=== PATIENT | female | born 1960 | race Caucasian/White ===

== ENCOUNTER 2017-12-10 23:45 | Inpatient (IN) ==
--- NOTE | 2017-12-11 00:13 | ED ---
HPI General Chief complaint: Altered Mental Status Stated complaint: Weakness Time Seen by Provider: 12/10/17 23:54 Source: patient and family Mode of arrival: ambulatory Limitations: no limitations (However patient was very anxious upon arrival) History of Present Illness HPI narrative: Per daughter the patient developed left-sided visual deficits along with right-sided upper extremity weakness and facial droop right-sided. All developed approximately 30 minutes prior to arrival. Daughter made the patient stop driving pullover and they switched. The daughter then drove her to [facility] [place] Upon arrival the patient no longer had a facial droop, no longer had any weakness to her extremities, no longer had slurred speech, and only appear to have the visual deficit to her left eye only, best described as decreased peripheral vision to her left eye only Onset (ago): minute(s) (30 minutes prior to arrival) Location: head (See HPI) Radiation: non-radiation Severity: moderate Severity scale (1-10): 4 Quality: other (Severity and severity scale are not 2 pain they are to the severity of the deficit at the time) Pain Consistency: other (No pain) Relieving factors: none Exacerbating factors: none Treatments prior to arrival: none Related Data Home Medications Medication Instructions Recorded Confirmed hydrochlorothiazide 12.5 mg PO DAILY 12/11/17 12/11/17 insulin aspart U-100 [Novolog 1 sliding scale dose SUB-Q UD 12/11/17 12/11/17 U-100 Insulin aspart] insulin glargine [Lantus U-100 10 unit SUB-Q DAILY 12/11/17 12/11/17 Insulin] lisinopril 40 mg PO DAILY 12/11/17 12/11/17 pregabalin [Lyrica] 200 mg PO TID 12/11/17 12/11/17 zolpidem [Ambien] 12/11/17 Allergies Allergy/AdvReac Type Severity Reaction Status Date / Time Sulfa (Sulfonamide Allergy Rash Verified 12/10/17 23:50 Antibiotics) Review of Systems ROS: all other systems reviewed are negative PMFSH History History Provided By: Patient Medical History Medical History Depression (Acute) Diabetes mellitus (Acute) H/O: hysterectomy (Acute) History of CVA (cerebrovascular accident) (Acute) Hyperlipidemia (Acute) Hypertension (Acute) Hypothyroidism (Acute) Neuropathy (Acute) Restless leg syndrome (Acute) Surgical History Surgical History H/O knee surgery (Acute) H/O shoulder surgery (Acute) History of cholecystectomy (Acute) Hx of breast reduction, elective (Acute) Family History Family History Other Coronary artery disease Diabetes mellitus Social History Social History Second Hand Smoke Exposure: No Smoking Status: Former smoker How Often Do You Have a Drink Containing Alcohol: Never Recent Travel in [facility] within the Last 8 Weeks: No Recent Out of Country Travel within the Last 8 Weeks: No Exam Narrative Exam Narrative: GENERAL: Well-nourished, well-developed patient in no apparent distress. SKIN: Warm and dry. HEAD: Atraumatic. Normocephalic. EYES: Pupils equal and round. No scleral icterus. No injection or drainage. ENT: No nasal bleeding or discharge. Mucous membranes pink and moist. NECK: Trachea midline. No JVD. CARDIOVASCULAR: Regular rate and rhythm. no rubs or gallops RESPIRATORY: No accessory muscle use. Clear to auscultation. Breath sounds equal bilaterally. GASTROINTESTINAL: Abdomen soft, non-tender, nondistended. No rebound or guarding MUSCULOSKELETAL: Extremities without clubbing, cyanosis, or edema. No obvious deformities. NEUROLOGICAL: Awake and alert. No obvious cranial nerve deficits. Motor grossly within normal limits. Five out of 5 muscle strength in the arms and legs. Normal speech....only remaining deficit is left lateral quadrant visual deficit to left eye only (no actual conjugate quadrantonopsia) PSYCHIATRIC: Appropriate mood and affect; insight and judgment normal. Course Initial Documented Vital Signs Temperature 97.6 F 12/10/17 23:47 Pulse Rate 96 H 12/10/17 23:47 Respiratory Rate 23 12/10/17 23:47 Blood Pressure 158/77 H 12/10/17 23:47 Pulse Oximetry 99 12/10/17 23:47 Last Documented Vital Signs Temperature 97.6 F 12/10/17 23:47 Pulse Rate 67 12/11/17 07:07 Respiratory Rate 16 12/11/17 07:07 Blood Pressure 143/68 H 12/11/17 07:07 Pulse Oximetry 98 12/11/17 07:07 Critical Care Time Critical Care Time: Yes Total Critical Care Time: 30 Attestation: Critical care Aggregate critical care time was 30 minutes. Time to perform other separately billable procedures was not included in the critical care time. My time did not include minutes spent treating any other patients simultaneously or on activities that did not directly contribute to the patient's treatment. The services I provided to this patient were to treat and/or prevent clinically significant deterioration that could result in: [Due to presentation of visual deficits weakness and droop this is suggestive of stroke syndrome, however within 30 minutes of arrival patient's symptoms improved dramatically] I provided critical care services requiring my management, as noted below: Chart data review, documentation time, medication orders and management, vital sign assessments/reviewing monitor data, ordering and reviewing lab tests, ordering and interpreting/reviewing x-rays and diagnostic studies, care of the patient and discussion of the patient with the admitting physicians. NIH Stroke Scale NIH Stroke Scale Level of Consciousness: 0-Alert Orientation Questions: 0-Answers both correct Responds to Commands: 0-Both tasks correct Gaze Eye Movement: 0-Horizontal movement WNL Visual Ambriz: 1-Partial hemianopia Facial Movement: 0-Normal Motor Functions Arm LEFT: 0-No drift Motor Functions Arm RIGHT: 0-No drift Motor Functions Leg LEFT: 0-No drift Motor Functions Leg RIGHT: 0-No drift Limb Ataxia: 0-No ataxia Sensory Loss: 0-No sensory loss Best Language: 0-Normal Articulation: 0-Normal Extinction or Inattention Sensory: 0-Absent Total: 1 Medical Decision Making MDM Narrative Medical decision making narrative: CBC shows no leukocytosis, no anemia, no left shift and normal platelet count Coagulation profile is within normal limits First set of cardiac enzymes are negative Electrolytes show the following abnormalities slightly low potassium of 3.3, GFR 51, creatinine 1.1, random glucose of 138. Otherwise normal electrolytes, normal liver functions chest xray is read by radiologist as negative examination CT head read by radiologist at 1 AM as a remote remote infarct of the right occipital lobe as well as more subtle hypodensity in the paramedian right occipital region concerning for an area of subacute infarct. Discussed in detail with the neurologist Dr. Huffman, recommended CT with contrast , admission, started on Plavix, due to the lack of major deficits the risk of TPA use outweighs the benefit, therefore the patient is not a TPA candidate. Lab Data Lab results reviewed: Yes I reviewed the patient's lab results. Result diagrams: 12/11/17 00:10 12/11/17 00:10 Lab Results 12/11/17 12/11/1712/11/18 Range/Units 00:01 00:10 00:10 WBC 9.3 (4.0-11.0) th/mm3 RBC 4.68 (4.00-5.30) mil/mm3 Hgb 12.2 (11.6-15.3) gm/dL Hct 38.0 (35.0-46.0) % MCV 81.2 (80.0-100.0) fL MCH 26.1 L (27.0-34.0) pg MCHC 32.2 (32.0-36.0) % RDW 18.7 H (11.6-17.2) % Plt Count 277 (150-450) th/mm3 MPV 8.2 (7.0-11.0) fL Neut % (Auto) 70.4 H (16.0-70.0) % Lymph % (Auto) 20.8 (9.0-44.0) % Weston % (Auto) 6.7 (0.0-8.0) % Eos % (Auto) 1.3 (0.0-4.0) % Baso % (Auto) 0.8 (0.0-2.0) % Neut # (Auto) 6.6 (1.8-7.7) th/mm3 Lymph # (Auto) 1.9 (1.0-4.8) th/mm3 Weston # (Auto) 0.6 (0.0-0.9) th/mm3 Eos # (Auto) 0.1 (0.0-0.4) th/mm3 Baso # (Auto) 0.1 (0.0-0.2) th/mm3 WBC Differential . Differential Comment Auto diff final PT 10.0 (9.8-11.6) sec INR 1.0 Ratio APTT 27.0 (24.3-30.1) sec Sodium (136-145) meq/L Potassium (3.5-5.1) meq/L Chloride (98-107) meq/L Carbon Dioxide (21.0-32.0) meq/L Anion Gap (5-15) meq/L BUN (7-18) mg/dL Creatinine (0.50-1.00) mg/dL Estimated GFR (>89) mL/min POC Glucose 143 H (68-110) mg/dl Random Glucose (74-106) mg/dL Calcium (8.5-10.1) mg/dL Total Bilirubin (0.2-1.0) mg/dL AST (15-37) U/L ALT (10-53) U/L Alkaline Phosphatase (45-117) U/L Total Creatine Kinase (26-192) U/L Troponin I (0.02-0.05) ng/mL Total Protein (6.4-8.2) g/dL Albumin (3.4-5.0) g/dL Blood Type Blood Type Recheck Antibody Screen 12/11/17 12/11/17 Range/Units 00:10 00:10 WBC (4.0-11.0) th/mm3 RBC (4.00-5.30) mil/mm3 Hgb (11.6-15.3) gm/dL Hct (35.0-46.0) % MCV (80.0-100.0) fL MCH (27.0-34.0) pg MCHC (32.0-36.0) % RDW (11.6-17.2) % Plt Count (150-450) th/mm3 MPV (7.0-11.0) fL Neut % (Auto) (16.0-70.0) % Lymph % (Auto) (9.0-44.0) % Weston % (Auto) (0.0-8.0) % Eos % (Auto) (0.0-4.0) % Baso % (Auto) (0.0-2.0) % Neut # (Auto) (1.8-7.7) th/mm3 Lymph # (Auto) (1.0-4.8) th/mm3 Weston # (Auto) (0.0-0.9) th/mm3 Eos # (Auto) (0.0-0.4) th/mm3 Baso # (Auto) (0.0-0.2) th/mm3 WBC Differential Differential Comment PT (9.8-11.6) sec INR Ratio APTT (24.3-30.1) sec Sodium 139 (136-145) meq/L Potassium 3.3 L (3.5-5.1) meq/L Chloride 105 (98-107) meq/L Carbon Dioxide 25.4 (21.0-32.0) meq/L Anion Gap 9 (5-15) meq/L BUN 8 (7-18) mg/dL Creatinine 1.10 H (0.50-1.00) mg/dL Estimated GFR 51 L (>89) mL/min POC Glucose (68-110) mg/dl Random Glucose 138 H (74-106) mg/dL Calcium 8.8 (8.5-10.1) mg/dL Total Bilirubin 0.4 (0.2-1.0) mg/dL AST 11 L (15-37) U/L ALT 19 (10-53) U/L Alkaline Phosphatase 126 H (45-117) U/L Total Creatine Kinase 44 (26-192) U/L Troponin I Less than 0.02 L (0.02-0.05) ng/mL Total Protein 7.4 (6.4-8.2) g/dL Albumin 3.8 (3.4-5.0) g/dL Blood Type O Positive Blood Type Recheck Required Antibody Screen Negative Imaging Data Radiologist's impression: Chest X-Ray 12/11/17 00:01 CONCLUSION: Negative examination. Head CT 12/11/17 00:01 CONCLUSION: 1. There is a remote infarct of the right occipital lobe, as well as more subtle hypodensity in the paramedian right occipital region concerning for an area of subacute infarct. MRI can be performed for further evaluation if felt clinically warranted . Head CTA 12/11/17 01:34 CONCLUSION: 1. Negative CTA Head. Neck CTA 12/11/17 01:34 CONCLUSION: 1. Atherosclerosis is seen however there is no evidence for hemodynamically significant stenosis. ECG Data EKG Prior to Arrival: No Attestation: I personally reviewed and interpreted this ECG as follows: Prior ECG tracings: not available for review Interpretation: EKG shows normal sinus rhythm, 79 bpm, normal intervals, no ST elevation CT pattern noted Discharge Plan Discharge Disposition Patient Disposition: 30 Still Patient Discharge Condition Condition: Stable Discharge Details Diagnosis: Occipital cerebral infarction Physicians Team ED Provider: Khurram Thomas Primary Care Provider: Primary Care Jeri,Kristyn Attending Provider: Jaya Handy Other Providers: Guillermo Springer ED Status: Admitted Patient
[2017-12-11] MEDS ORDERED: Sod Chloride 0.9% Inj 1,000 ML IV.CONT SCH (00:15)
[2017-12-11 00:26] LABS: Baso # (Auto) 0.1 th/mm3 (0.0-0.2); Baso % (Auto) 0.8 % (0.0-2.0); Eos # (Auto) 0.1 th/mm3 (0.0-0.4); Eos % (Auto) 1.3 % (0.0-4.0); Hemoglobin 12.2 gm/dL (11.6-15.3); Lymph # (Auto) 1.9 th/mm3 (1.0-4.8); Lymph % (Auto) 20.8 % (9.0-44.0); Mean Corpuscular HGB Conc 32.2 % (32.0-36.0); Mean Corpuscular Hemoglobin 26.1 pg (27.0-34.0); Mean Corpuscular Volume 81.2 fL (80.0-100.0); Mean Platelet Volume 8.2 fL (7.0-11.0); Mono # (Auto) 0.6 th/mm3 (0.0-0.9); Mono % (Auto) 6.7 % (0.0-8.0); Neut # (Auto) 6.6 th/mm3 (1.8-7.7); Neut % (Auto) 70.4 % (16.0-70.0); Platelet Count 277 th/mm3 (150-450); Red Blood Count 4.68 mil/mm3 (4.00-5.30); Red Cell Distribution Width 18.7 % (11.6-17.2); White Blood Count 9.3 th/mm3 (4.0-11.0)
--- NOTE | 2017-12-11 00:31 | XR ---
EXAM DATE: 12/11/2017 12:26 AM EDT AGE/SEX: 57 years / Female INDICATIONS: Short of breath. CLINICAL DATA: This is the patient's initial encounter. Patient reports that signs and symptoms have been present for 1 day and indicates a pain score of 0/10. MEDICAL/SURGICAL HISTORY: None. None. COMPARISON: No prior exams available for comparison. FINDINGS: A single AP view of the chest demonstrates the lungs to be symmetrically aerated without evidence of mass, infiltrate or effusion. The cardiomediastinal contours are unremarkable. Osseous structures a re intact. CONCLUSION: Negative examination. Electronically signed by: Morgan Roca MD 12/11/2017 12:30 AM EDT
[2017-12-11 00:50] LABS: Alanine Aminotransferase 19 U/L (10-53); Albumin 3.8 g/dL (3.4-5.0); Anion Gap 9 meq/L (5-15); Aspartate Aminotransferase 11 U/L (15-37); Blood Urea Nitrogen 8 mg/dL (7-18); Calcium 8.8 mg/dL (8.5-10.1); Carbon Dioxide 25.4 meq/L (21.0-32.0); Chloride 105 meq/L (98-107); Glomerular Filtration Rate 51 mL/min (>89); Glucose,Random 138 mg/dL (74-106); Potassium 3.3 meq/L (3.5-5.1); Sodium 139 meq/L (136-145)
[2017-12-11 00:54] LABS: Alkaline Phosphatase 126 U/L (45-117); Total Protein 7.4 g/dL (6.4-8.2)
[2017-12-11 01:03] LABS: Creatine Kinase 44 U/L (26-192)
--- NOTE | 2017-12-11 01:04 | CT ---
EXAM DATE: 12/11/2017 12:54 AM EDT AGE/SEX: 57 years / Female INDICATIONS: Right side weakness; vision changes. CLINICAL DATA: This is the patient's initial encounter. Patient reports that signs and symptoms have been present for 1 day and indicates a pain score of 3/10. MEDICAL/SURGICAL HISTORY: Hypertension. TIA None. RADIATION DOSE: 56.35 CTDI (mGy) COMPARISON: No prior exams available for comparison. TECHNIQUE: CT of the head without contrast. Using automated exposure control and adjustment of the mA and/or kV according to patient size, radiation dose was kept as low as reasonably achievable to ob tain optimal diagnostic quality images. DICOM format image data is available electronically for revi ew and comparison. FINDINGS: There are no signs of intracranial hemorrhage. There is abnormal low density in the right paramedian occipital lobe suspect for an area of subacute infarct. There is evidence of very remote right occipi helen infarct with encephalomalacia. The osseous structures are intact. CONCLUSION: 1. There is a remote infarct of the right occipital lobe, as well as more subtle hypodensity in the paramedian right occipital region concerning for an area of subacute infarct. MRI can be performed fo r further evaluation if felt clinically warranted . Electronically signed by: Morgan Roca MD 12/11/2017 1:02 AM EDT
--- NOTE | 2017-12-11 02:20 | CT ---
EXAM DATE: 12/11/2017 2:15 AM EDT AGE/SEX: 57 years / Female INDICATIONS: Right side weakness. Vision change. CLINICAL DATA: This is the patient's initial encounter. Patient reports that signs and symptoms have been present for 1 day and indicates a pain score of 0/10. MEDICAL/SURGICAL HISTORY: Stroke. Hypertension. Chronic obstructive pulmonary disease. TIA. Diab etes. None. RADIATION DOSE: 11.22 CTDI (mGy) ; Combined studies COMPARISON: [facility] [place], [place] HEAD W/O CONTRAST, 12/11/2017. . TECHNIQUE: Volumetric scanning was performed using a multi-row detector CT scanner during bolus infu renée of 75 ml Omnipaque 350 (iohexol) nonionic water-soluble contrast as a cumulative dose for multi ple exams. The data was post processed with a variety of visualization algorithms including full vo lume maximum intensity projection, multi-planar sliding thin slab reformation, curved planar reformat ion, and surface rendering techniques. Using automated exposure control and adjustment of the mA and /or kV according to patient size, radiation dose was kept as low as reasonably achievable to obtain o ptimal diagnostic quality images. DICOM format image data is available electronically for review and comparison. FINDINGS: There is excellent visualization of the major intracranial arteries out to the second-order branch ve ssels. There is no evidence for aneurysm, vessel truncation or stenosis, and no evidence for vascula r malformation. CONCLUSION: 1. Negative CTA Head. Electronically signed by: Morgan Roca MD 12/11/2017 2:19 AM EDT
--- NOTE | 2017-12-11 02:25 | CT ---
EXAM DATE: 12/11/2017 2:16 AM EDT AGE/SEX: 57 years / Female INDICATIONS: Right side weakness. Vision change. CLINICAL DATA: This is the patient's initial encounter. Patient reports that signs and symptoms have been present for 1 day and indicates a pain score of 0/10. MEDICAL/SURGICAL HISTORY: Stroke. Hypertension. Chronic obstructive pulmonary disease. TIA. Diab etes. None. RADIATION DOSE: 11.22 CTDI (mGy) ; Combined studies COMPARISON: No prior exams available for comparison. TECHNIQUE: Volumetric scanning was performed using a multirow detector CT scanner during bolus infus ion of 75 ml Omnipaque 350 (iohexol) nonionic water-soluble contrast as a cumulative dose for multip le exams. The data was postprocessed with a variety of visualization algorithms including full-volu me maximum intensity projection, multiplanar sliding thin-slab reformation, curved-planar reformation , and surface-rendering techniques. Using automated exposure control and adjustment of the mA and/or kV according to patient size, radiation dose was kept as low as reasonably achievable to obtain opti mal diagnostic quality images. DICOM format image data is available electronically for review and co mparison. Percent stenosis is calculated using the diameter of the stenotic region over the diameter of the nor mal distal internal carotid artery. FINDINGS: There is medialization of the bilateral internal carotid arteries. The right internal carotid artery is noted directly anterior to the C2-3 interspace at the midline. There is moderate calcific plaquing at the left greater than right carotid bifurcation. External carotid arteries and vertebral arteries are patent. Common carotid arteries are widely patent. There is no evidence for hemodynamically sign ificant stenosis of either carotid artery. Three-vessel origin off the aortic arch. CONCLUSION: 1. Atherosclerosis is seen however there is no evidence for hemodynamically significant stenosis. Electronically signed by: Morgan Roca MD 12/11/2017 2:23 AM EDT
[2017-12-11] MEDS ORDERED: Dextrose 50% in Water 50 ML Vial IV.PUSH PRN (03:29)
--- NOTE | 2017-12-11 04:18 | P.HP ---
History of Present Illness Service: [facility] Primary Care Physician: No Primary Care Physician History of Present Illness: 57-year-old female with past medical history significant for previous CVA/TIAs, hypertension, hyperlipidemia, diabetes mellitus, hypothyroidism, depression, neuropathy and restless leg presents to the emergency department for the evaluation of new onset strokelike symptoms. The patient reports that she was with her daughter when she started having pain in her head and right arm along with chest pressure. She states that she was having significant dysarthria which her daughter described as a "word salad." She also reports that she had left eye peripheral vision loss that is worse from her baseline vision loss from previous CVA. She denies any shortness of breath. No diaphoresis. No abdominal pain. No nausea/vomiting/diarrhea. No fever/chills. Inpatient Certification: I certify that the inpatient services were ordered in accordance with Medicare regulations governing the order. This includes certification that hospital inpatient services are reasonable and necessary and in the case of services not specified as inpatient-only under 42 CFR 419.22(n), that they are appropriately provided as inpatient services in accordance to with the 2-midnight benchmark under 43 CFR 412.3(e) Estimated Total Length of Stay (Days): 2 Plans for Post Hospital Care: Not yet determined Review of Systems All other systems reviewed negative except as stated in HPI [facility] - History History Provided By: Patient - Medical History Medical History: Medical History (Last Updated 12/11/17 @ 04:13 by Mirtha Mcintyre MD) Depression Diabetes mellitus H/O: hysterectomy History of CVA (cerebrovascular accident) Hyperlipidemia Hypertension Hypothyroidism Neuropathy Restless leg syndrome - Surgical History Surgical History: Surgical History (Last Updated 12/11/17 @ 04:13 by Mirtha Mcintyre MD) H/O knee surgery H/O shoulder surgery History of cholecystectomy Hx of breast reduction, elective - Family History Family History: Family History (Last Updated 12/11/17 @ 04:13 by Mirtha Mcintyre MD) Other Coronary artery disease Diabetes mellitus - Tobacco History Second Hand Smoke Exposure: No Smoking Status: Former smoker - Alcohol History How Often Do You Have a Drink Containing Alcohol: Never - Travel History Recent Travel in the [place] Within the Last 8 Weeks: No Recent Travel Out of the Country Within the Last 8 Weeks: No - Immunization History Tetanus Immunization: >5 Years Hx Influenza Vaccine This Season: No Medications and Allergies Active Medications: Active Medications Clopidogrel Bisulfate (Plavix) 75 mg PO DAILY CAPO Dextrose (D50w Vial) 50 ml IV.PUSH UNSCH PRN PRN Reason: PER HYPOGLYCEMIA PROTOCOL Glucagon (Glucagon Inj) 1 mg OTHER PRN PRN PRN Reason: for Hypoglycemia Protocol Heparin Sodium (Porcine) (Heparin Inj) 5,000 units SQ Q8H CAPO Hydrochlorothiazide (Microzide) 12.5 mg PO DAILY CAPO Sodium Chloride (Ns Inj) 1,000 mls @ 70 mls/hr IV.CONT .[id number] CAPO Insulin Aspart (Novolog Insulin Correctional Sugar Inj) 0 unit SQ ACHS AND 3AM CAPO; Protocol Insulin Detemir (Levemir Inj) 10 unit SQ DAILY CAPO Lisinopril (Prinivil) 40 mg PO DAILY CAPO Pregabalin (Lyrica) 200 mg PO TID CAPO Sodium Chloride (Ns Flush) 2 ml IV.FLUSH PRN PRN PRN Reason: FLUSH AFTER USING IV ACCESS Sodium Chloride (Ns Flush) 2 ml IV.FLUSH BID CAPO Sodium Chloride (Ns Flush) 2 ml IV.FLUSH PRN PRN PRN Reason: FLUSH AFTER USING IV ACCESS Allergies Allergy/AdvReac Type Severity Reaction Status Date / Time Sulfa (Sulfonamide Allergy Rash Verified 12/10/17 23:50 Antibiotics) Home Medications Medication Instructions Recorded Confirmed Type hydrochlorothiazide 12.5 mg PO DAILY 12/11/17 12/11/17 History insulin aspart U-100 [Novolog 1 sliding scale dose SUB-Q UD 12/11/17 12/11/17 History U-100 Insulin aspart] insulin glargine [Lantus U-100 10 unit SUB-Q DAILY 12/11/17 12/11/17 History Insulin] lisinopril 40 mg PO DAILY 12/11/17 12/11/17 History pregabalin [Lyrica] 200 mg PO TID 12/11/17 12/11/17 History zolpidem [Ambien] 12/11/17 History Exam Vital signs: Vital Signs 12/10/17 23:47 12/11/17 00:50 12/11/17 03:46 Temperature 97.6 F Pulse Rate 96 H 91 H Respiratory Rate 23 16 Blood Pressure 158/77 H 161/95 H Pulse Oximetry 99 98 98 Intake & Output 12/10/17 12/10/17 12/11/17 06:59 18:59 06:59 Weight 133.81 kg Narrative: Gen.: No acute distress Head: Normocephalic. Atraumatic. EENT: Pupils equal round and reactive to light. Nose without drainage. Airway intact. Throat without injection. Cardiovascular: Regular rate and rhythm. No murmurs, rubs or gallops. Respiratory: Lungs clear to auscultation bilaterally. No wheezes or rhonchi. Abdomen: Soft, nontender, nondistended. No peritoneal signs. Musculoskeletal: No gross deformities. No edema. Skin: No obvious rashes or erythema. Neuro: Mentation intact throughout. Cranial nerves II through XII intact. 4/5 right hand practice performance manager strength and right lower extremity strength. Remainder of strength exam 5/5 throughout. No dysarthria or word finding difficulties. Results - Labs CBC & Chem 7: 12/11/17 00:10 12/11/17 00:10 Labs: Laboratory Results - last 24 hr 12/11/17 12/11/17 12/11/17 00:01 00:10 00:10 WBC 9.3 RBC 4.68 Hgb 12.2 Hct 38.0 MCV 81.2 MCH 26.1 L MCHC 32.2 RDW 18.7 H Plt Count 277 MPV 8.2 Neut % (Auto) 70.4 H Lymph % (Auto) 20.8 [place] % (Auto) 6.7 Eos % (Auto) 1.3 Baso % (Auto) 0.8 Neut # (Auto) 6.6 Lymph # (Auto) 1.9 [place] # (Auto) 0.6 Eos # (Auto) 0.1 Baso # (Auto) 0.1 WBC Differential . Differential Comment Auto diff final PT 10.0 INR 1.0 APTT 27.0 Sodium Potassium Chloride Carbon Dioxide Anion Gap BUN Creatinine Estimated GFR POC Glucose 143 H Random Glucose Calcium Total Bilirubin AST ALT Alkaline Phosphatase Total Creatine Kinase Troponin I Total Protein Albumin Blood Type Blood Type Recheck Antibody Screen 12/11/17 12/11/17 00:10 00:10 WBC RBC Hgb Hct MCV MCH MCHC RDW Plt Count MPV Neut % (Auto) Lymph % (Auto) [place] % (Auto) Eos % (Auto) Baso % (Auto) Neut # (Auto) Lymph # (Auto) [place] # (Auto) Eos # (Auto) Baso # (Auto) WBC Differential Differential Comment PT INR APTT Sodium 139 Potassium 3.3 L Chloride 105 Carbon Dioxide 25.4 Anion Gap 9 BUN 8 Creatinine 1.10 H Estimated GFR 51 L POC Glucose Random Glucose 138 H Calcium 8.8 Total Bilirubin 0.4 AST 11 L ALT 19 Alkaline Phosphatase 126 H Total Creatine Kinase 44 Troponin I Less than 0.02 L Total Protein 7.4 Albumin 3.8 Blood Type O Positive Blood Type Recheck Required Antibody Screen Negative - Imaging Impressions Chest X-Ray 12/11/17 00:01 CONCLUSION: Negative examination. Head CT 12/11/17 00:01 CONCLUSION: 1. There is a remote infarct of the right occipital lobe, as well as more subtle hypodensity in the paramedian right occipital region concerning for an area of subacute infarct. MRI can be performed for further evaluation if felt clinically warranted . Head CTA 12/11/17 01:34 CONCLUSION: 1. Negative CTA Head. Neck CTA 12/11/17 01:34 CONCLUSION: 1. Atherosclerosis is seen however there is no evidence for hemodynamically significant stenosis. Caprini VTE Risk Assessment Caprini VTE Risk Assessment: Moderate/High Risk (score >= 2) Caprini Risk Assessment Model: Point Value = 1 Point Value = 2 Point Value = 3 Point Value = 5 Age 41-60 Minor surgery BMI > 25 kg/m2 Swollen legs Varicose veins or History of unexplained or recurrent spontaneous Oral contraceptives or hormone replacement Sepsis (< 1 month) Serious lung disease, including pneumonia (< 1 month) Abnormal pulmonary function Acute myocardial infarction Congestive heart failure (< 1 month) History of inflammatory bowel disease Medical patient at bed rest Age 61-74 Arthroscopic surgery Major open surgery (> 45 min) Laparoscopic surgery (> 45 min) Malignancy Confined to bed (> 72 hours) Immobilizing plaster cast Central venous access Age >= 75 History of VTE Family history of VTE Factor V Leiden Prothrombin [id number] Lupus anticoagulant Anticardiolipin antibodies Elevated serum homocysteine Heparin-induced thrombocytopenia Other congenital or acquired thrombophilia Stroke (< 1 month) Elective arthroplasty Hip, pelvis, or leg fracture Acute spinal cord injury (< 1 month) Prophylaxis Regimen: Total Risk Factor Score Risk Level Prophylaxis Regimen 0-1 Low Early ambulation 2 Moderate Order ONE of the following: *Sequential Compression Device (SCD) *Heparin 5000 units SQ BID 3-4 Higher Order ONE of the following medications: *Heparin 5000 units SQ TID *Enoxaparin/Lovenox 40 mg SQ daily (WT < 150 kg, CrCl > 30 mL/min) *Enoxaparin/Lovenox 30 mg SQ daily (WT < 150 kg, CrCl > 10-29 mL/min) *Enoxaparin/Lovenox 30 mg SQ BID (WT < 150 kg, CrCl > 30 mL/min) AND/OR *Sequential Compression Device (SCD) 5 or more Highest Order ONE of the following medications: *Heparin 5000 units SQ TID (Preferred with Epidurals) *Enoxaparin/Lovenox 40 mg SQ daily (WT < 150 kg, CrCl > 30 mL/min) *Enoxaparin/Lovenox 30 mg SQ daily (WT < 150 kg, CrCl > 10-29 mL/min) *Enoxaparin/Lovenox 30 mg SQ BID (WT < 150 kg, CrCl > 30 mL/min) AND *Sequential Compression Device (SCD) Assessment and Plan - Plan Assessment/plan: 1. CVA/TIA Head CT significant for a remote infarct of the right occipital lobe and a hypodensity in the right occipital region concerning for an area of subacute infarct CTA head and neck pending MRI/MRA, carotid ultrasound pending Neurology consulted, appreciate recommendations Plavix per neurology 2. Chest pain/pressure Initial troponin negative EKG pending ACS rule out pending; serial troponins/EKGs 3. Diabetes mellitus Continue Home basal insulin Sliding-scale insulin Monitor blood glucose 4. Hypertension/hyperlipidemia Continue home medications 5. Neuropathy/restless leg syndrome/depression Continue home medications 6. Hypothyroidism Continue home Synthroid FEN N.p.o. NS at 70 cc/hour Electrolytes: Status post p.o. repletion of potassium, monitor BMP Heparin
[2017-12-11] MEDS ORDERED: Potassium Chloride 25 MEQ Effervescent Tablet PO ONE (04:30)
[2017-12-11] MEDS ORDERED: Ketorolac Inj 30 MG/ML (IVP) Vial IV.PUSH PRN (04:53)
[2017-12-11] MEDS: Sod Chloride 0.9% Inj 1,000 ML IV.CONT SCH ×2 (04:54→19:13)
[2017-12-11] MEDS: Heparin - SQ 10,000 UNITS/ML Vial SQ SCH ×3 (05:10→21:39)
[2017-12-11] MEDS: Ketorolac Inj 30 MG/ML (IVP) Vial IV.PUSH PRN ×3 (05:11→20:20)
[2017-12-11] MEDS: Insulin NovoLOG Aspart Correctional Sugar Inj SQ SCH ×4 (08:27→23:10)
[2017-12-11 08:41] LABS: Creatine Kinase 31 U/L (26-192)
[2017-12-11 10:14] LABS: Bilirubin,Urine Negative (Negative); Clarity,Urine Clear (Clear); Color,Urine Yellow (Yellw/Straw); Glucose,Urine (UA) Negative (Negative); Leukocyte Esterase,Urine Negative (Negative); Mucus,Urine Few /lpf (Occasional); Nitrite,Urine Negative (Negative); Specific Gravity,Urine 1.054 (1.002-1.035); Squamous Epithelial Cell,Urine 1 /hpf (0-5)
[2017-12-11 10:17] LABS: Amphetamine Screen,Urine Neg (Neg); Barbiturate Screen,Urine Neg (Neg); Cannabinoid Screen,Urine Neg (Neg); Cocaine Screen,Urine Neg (Neg)
[2017-12-11 10:22] LABS: Opiate Screen,Urine Neg (Neg)
--- NOTE | 2017-12-11 10:35 | MR ---
EXAM DATE: 12/11/2017 10:30 AM EDT AGE/SEX: 57 years / Female INDICATIONS: Slurred speech. Right sided weakness. CLINICAL DATA: This is the patient's subsequent encounter. Patient reports that signs and symptoms h ave been present for 2 days and indicates a pain score of 2/10. MEDICAL/SURGICAL HISTORY: Carcinoma, cervical. Hypertension. Diabetes mellitus type II. CVA section. Hysterectomy. shoulder and knee replacement. COMPARISON: [facility] – [place], [place] HEAD W/O CONTRAST, 12/11/2017. . TECHNIQUE: Multiplanar, multisequence examination of the brain was performed without contrast. FINDINGS: Cerebrum: There is an area of old infarction in the right occipital/parietal region adjacent to the falx. The ventricles are normal for age. No evidence of midline shift, mass lesion, hemorrhage or ac aaron infarction. No extraaxial fluid collections are seen. The pituitary gland and suprasellar ciste rn are normal in configuration. White Matter: No significant signal abnormalities are seen in the white matter. Posterior Fossa: The cerebellum and brainstem are intact. The 4th ventricle is midline. The cerebel lopontine angle is unremarkable. The cerebellar tonsils are normal in position. Diffusion Imaging: No focal areas of restricted diffusion are seen. No evidence of acute infarction . Extracranial: The visualized portions of the orbits and paranasal sinuses are unremarkable. CONCLUSION: 1. Old infarction right parietal occipital lobe. 2. No acute infarction. Electronically signed by: Jose Lozoya MD 12/11/2017 10:34 AM EDT
[2017-12-11] MEDS: Insulin Detemir Inj 1,000 UNIT/10 ML Vial SQ SCH (10:47)
[2017-12-11] MEDS: Lisinopril 20 MG Tablet PO SCH (11:09)
--- NOTE | 2017-12-11 11:15 | MR ---
EXAM DATE: 12/11/2017 10:29 AM EDT AGE/SEX: 57 years / Female INDICATIONS: Slurred speech. Right sided weakness. CLINICAL DATA: This is the patient's subsequent encounter. Patient reports that signs and symptoms h ave been present for 2 days and indicates a pain score of 2/10. MEDICAL/SURGICAL HISTORY: Carcinoma, cervical. Hypertension. Diabetes mellitus type II. Dhiraj jorden section. Hysterectomy. Knee and shoulder replacement. [place] [facility] [place]. . TECHNIQUE: 3D [id number] MRA was performed. Source images, multiplanar STS MIP, and 3D volum e MIP reconstructions were reviewed. FINDINGS: There is excellent visualization of the major intracranial arteries out to the second-order branch ve ssels. There is no evidence for aneurysm, vessel truncation or stenosis, and no evidence for vascula r malformation. CONCLUSION: MRA of the brain is within normal limits. Electronically signed by: Waqar Rodriguez MD 12/11/2017 11:14 AM EDT
[2017-12-11 15:14] LABS: Creatine Kinase 34 U/L (26-192)
[2017-12-11] MEDS: Acetaminophen 325 MG Tablet PO PRN (16:59)
[2017-12-11 18:18] LABS: Chol/HDL Ratio 4.27 Ratio; HDL Cholesterol 45.6 mg/dL (40.0-60.0)
--- NOTE | 2017-12-11 22:02 | ECG ---
Date Performed: 12/11/2017 Time Performed: 00:42:56 PTAGE: 57 years EKG: Sinus rhythm NORMAL ECG NO PREVIOUS TRACING DOCTOR: Janny Denis Interpretating Date/Time 12/11/2017 22:01:54
[2017-12-11] MEDS: Zolpidem Tartrate 5 MG Tablet PO PRN (22:58)
[2017-12-12] MEDS: Insulin NovoLOG Aspart Correctional Sugar Inj SQ SCH ×4 (04:28→17:52)
[2017-12-12 07:15] LABS: Chol/HDL Ratio 4.37 Ratio; HDL Cholesterol 41.8 mg/dL (40.0-60.0)
--- NOTE | 2017-12-12 07:55 | MB ---
cc: Guillermo Springer MD, PhD DATE: 12/11/2017 REASON FOR CONSULTATION: TIA. HISTORY OF PRESENT ILLNESS: Ms. Nolen is a 57-year-old woman who has a history of previous stroke, yesterday developed sudden onset of right-sided numbness, as well as weakness, difficulty with vision in the left eye and speech changes with a "word salad." Her symptoms have improved, but she feels the right arm is slightly weak today, but her speech is back to normal. Vision is back to normal for her. PAST MEDICAL HISTORY: She has a history of stroke in the past, hypertension, hyperlipidemia, diabetes, hypothyroidism, depression, neuropathy, restless leg syndrome, hysterectomy, restless leg syndrome. MEDICATIONS: According to the ER notes include Plavix 75 mg daily, hydrochlorothiazide, insulin, Lyrica 200 mg t.i.d. The patient states that she takes Xarelto at home, but I do not see this on her MAR. Currently, Plavix was started after consultation with Dr. Huffmna. The patient was not felt to be a TPA candidate. ALLERGIES: SULFA. PHYSICAL EXAMINATION: VITAL SIGNS: Blood pressure is 151/66, pulse 70, respiratory rate is 18, temperature 97 . NEUROLOGIC: Higher critical functions are normal. Cranial nerves intact. Motor: She has no definite focal deficits, although she does relate some mild weakness on the right, but this may be giveaway. Sensory exam intact. Reflexes are 2+ symmetric. IMAGING STUDIES: MRI of the brain, old infarct in the right parieto-occipital area. No acute changes identified. The CT brain, remote infarct in the right occipital lobe. There is a subtle hypodensity in the right paramedian occipital lobe, possible subacute infarct. CTA of the head is negative. CTA neck, no evidence of any significant stenosis. Head MRA is normal. LABORATORY DATA: The white count 9300, hemoglobin 12.2, hematocrit 30%, platelet count 277,000. PT 10, INR 1, aPTT 27. Sodium 139, potassium 3.3, chloride 105, CO2 25.4, BUN is 8, creatinine 1.10, GFR 51, glucose 144, calcium 8.8. AST 11, ALT 19, alkaline phosphatase 126. Troponin less than 0.02. Tox screen negative. IMPRESSION: Probable transient ischemic attack, which now has resolved. RECOMMENDATIONS: We will clarify with the patient the reason why she was on Xarelto, as to whether or not she has AFib. For now, would continue Plavix unless AFib is documented. We will obtain an echocardiogram, as well as a lipid panel. Continue to monitor cardiac telemetry. The patient was in sinus rhythm on admission. If atrial fibrillation is documented, consider anticoagulation. She may require a long-term ekg monitor with a loop recorder as an outpatient. Guillermo Springer MD, PhD BRUCE/HAYDEE , 05:26 PM , 05:34 PM
[2017-12-12] MEDS: Lisinopril 20 MG Tablet PO SCH (08:06)
[2017-12-12] MEDS: Ketorolac Inj 30 MG/ML (IVP) Vial IV.PUSH PRN ×3 (08:08→22:49)
[2017-12-12] MEDS: Insulin Detemir Inj 1,000 UNIT/10 ML Vial SQ SCH (08:09)
[2017-12-12] MEDS: Heparin - SQ 10,000 UNITS/ML Vial SQ SCH ×2 (08:12→13:03)
[2017-12-12] MEDS: Sod Chloride 0.9% Inj 1,000 ML IV.CONT SCH (08:13)
--- NOTE | 2017-12-12 16:01 | P.PNIM ---
Subjective Interval history: She says she is feeling all right. Says she still has some minor pain. She is requesting all her meds to be refilled as she just came down here from [facility] , is requesting narcotic pain refills as well. Physical Exam Vital signs: Vital Signs 12/11/17 16:00 12/11/17 17:00 12/11/17 18:00 Temperature 97.6 F Pulse Rate 80 86 71 Respiratory Rate 18 Blood Pressure 151/66 H Pulse Oximetry 100 12/11/17 19:00 12/11/17 19:12 12/11/17 20:00 Temperature 98.2 F Pulse Rate 76 78 Respiratory Rate 18 16 Blood Pressure 126/83 Pulse Oximetry 98 12/11/17 20:55 12/11/17 21:00 12/11/17 21:38 Temperature Pulse Rate 70 Respiratory Rate 16 Blood Pressure Pulse Oximetry 98 12/11/17 22:00 12/11/17 23:00 12/12/17 00:00 Temperature 98.3 F Pulse Rate 80 80 84 Respiratory Rate 18 Blood Pressure 140/71 Pulse Oximetry 98 12/12/17 01:00 12/12/17 02:00 12/12/17 03:00 Temperature Pulse Rate 80 80 80 Respiratory Rate Blood Pressure Pulse Oximetry 12/12/17 04:00 12/12/17 05:00 12/12/17 06:00 Temperature 98.1 F Pulse Rate 86 80 82 Respiratory Rate 18 Blood Pressure 168/91 H Pulse Oximetry 98 12/12/17 08:00 12/12/17 09:20 12/12/17 12:00 Temperature 97.8 F 97.9 F Pulse Rate 83 89 Respiratory Rate 18 18 18 Blood Pressure 171/85 H 164/90 H Pulse Oximetry 98 95 Intake & Output 12/11/17 12/12/17 12/12/17 18:59 06:59 18:59 Intake Total 720 / 720 1840 / 1840 1000 / 1000 Output Total 600 / 600 800 / 800 Balance 120 / 120 1040 / 1040 1000 / 1000 Weight 165.4 kg Intake: IV 1000 / 1000 1000 / 1000 NS Inj 1,000 ML @ 70 mls/hr IV. 1000 / 1000 1000 / 1000 CONT .[id number] CAPO Rx#:[id number] Oral 720 / 720 840 / 840 Output: Urine 600 / 600 800 / 800 Other: # Voids 1 Date of Last Bowel Movement 12/11/17 12/11/17 # Bowel Movements 2 2 Narrative: GENERAL: Patient lying in bed. Appears comfortable. Alert and oriented 3. SKIN: Warm and dry. HEAD: Normocephalic. EYES: No scleral icterus. No injection or drainage. NECK: Supple, trachea midline. No JVD. CARDIOVASCULAR: Regular rate and rhythm without murmurs, gallops, or rubs. RESPIRATORY: Breath sounds equal bilaterally. No accessory muscle use. GASTROINTESTINAL: Abdomen soft, non-tender, nondistended. MUSCULOSKELETAL: No cyanosis, or edema. BACK: Nontender without obvious deformity. No CVA tenderness. Results - Labs CBC & Chem 7: 12/11/17 00:10 12/11/17 00:10 Laboratory Results - last 24 hr 12/11/17 12/11/17 12/11/17 14:00 16:56 21:36 POC Glucose 155 H 126 H Triglycerides 206 H Cholesterol 195 LDL Cholesterol, Calc 108 H HDL Cholesterol 45.6 Cholesterol/HDL Ratio 4.27 12/12/17 12/12/17 12/12/17 05:08 08:00 11:54 POC Glucose 168 H 139 H Triglycerides 245 H Cholesterol 183 LDL Cholesterol, Calc 92 HDL Cholesterol 41.8 Cholesterol/HDL Ratio 4.37 Assessment and Plan - Plan Assessment/plan: // CVA/TIA Head CT significant for a remote infarct of the right occipital lobe and a hypodensity in the right occipital region concerning for an area of subacute infarct CTA head and neck pending MRI/MRA, carotid ultrasound pending Neurology consulted, appreciate recommendations Plavix per neurology = 12/12. Old stroke, no new stroke. pending echocardiogram, EEG, neurology clearance. //Chest pain/pressure Initial troponin negative EKG pending ACS rule out pending; serial troponins/EKGs //Diabetes mellitus Continue Home basal insulin Sliding-scale insulin Monitor blood glucose // Hypertension/hyperlipidemia Continue home medications //Neuropathy/restless leg syndrome/depression Continue home medications //Hypothyroidism Continue home Synthroid FEN N.p.o. NS at 70 cc/hour Electrolytes: Status post p.o. repletion of potassium, monitor BMP Heparin Discharge Planning: Echocardiogram and EEG pending. home When cleared by neurology.
--- NOTE | 2017-12-12 16:21 | MG ---
cc: Adelso Avila MD EEG NUMBER: [id number] REASON FOR STUDY: A 57-year-old woman, left-sided visual deficits, facial droop, depression, stroke, right parietal lobe stroke, old. FINDINGS: A symmetric 8-9 Hz 50 microvolt posterior rhythm is seen. I do not see any right hemisphere abnormalities. Photic stimulation performed without significant posterior driving. Hyperventilation not performed. Mild diffuse theta slowing is occasionally noted. The patient fell asleep, but did not quite reach stage II sleep. IMPRESSION: Normal awake and sleep electroencephalogram. No evidence for a focal or diffuse abnormality. Some snoring was noted. MD MAURA Myers/crystal , 03:45 PM , 03:50 PM
[2017-12-12 16:51] LABS: Hemoglobin A1c 6.7 % (4.3-6.0)
--- NOTE | 2017-12-12 17:33 | P.PNNEU ---
Subjective Subjective Comments: No acute events reported She feels vision is back to normal. RIght side strenght normal. ABle to walk with PT Additional hisotory--patient states she was hospitalized in a hospital in [place] and found to have a "blood clot in a vein in the brain " and that was the reason she was put on xarelto. She does not recall if they found afib. SHe ran out of xarelto about a month ago. Active Medications: Active Medications Acetaminophen (Tylenol) 650 mg PO Q4H PRN PRN Reason: PAIN SCALE 6 TO 10 Last Admin: 12/11/17 16:59 Dose: 650 mg Clopidogrel Bisulfate (Plavix) 75 mg PO DAILY [facility] Last Admin: 12/12/17 08:07 Dose: 75 mg Dextrose (D50w Vial) 50 ml IV.PUSH UNSCH PRN PRN Reason: PER HYPOGLYCEMIA PROTOCOL Glucagon (Glucagon Inj) 1 mg OTHER PRN PRN PRN Reason: for Hypoglycemia Protocol Heparin Sodium (Porcine) (Heparin Inj) 5,000 units SQ Q8H [facility] Last Admin: 12/12/17 13:03 Dose: 5,000 units Hydrochlorothiazide (Microzide) 12.5 mg PO DAILY [facility] Last Admin: 12/12/17 08:06 Dose: 12.5 mg Sodium Chloride (Ns Inj) 1,000 mls @ 70 mls/hr IV.CONT .[id number] [facility] Last Admin: 12/12/17 08:13 Dose: 70 mls/hr Insulin Aspart (Novolog Insulin Correctional Sugar Inj) 0 unit SQ ACHS AND 3AM [facility]; Protocol Last Admin: 12/12/17 13:04 Dose: Not Given Insulin Detemir (Levemir Inj) 10 unit SQ DAILY [facility] Last Admin: 12/12/17 08:09 Dose: 10 unit Ketorolac Tromethamine (Toradol Inj) 30 mg IV.PUSH Q6H PRN PRN Reason: pain 6-10 Stop: 12/16/17 04:57 Last Admin: 12/12/17 14:05 Dose: 30 mg Levothyroxine Sodium (Synthroid) 200 mcg PO DAILY@0600 [facility] Last Admin: 12/12/17 08:13 Dose: 200 mcg Lisinopril (Prinivil) 40 mg PO DAILY [facility] Last Admin: 12/12/17 08:06 Dose: 40 mg Pregabalin (Lyrica) 200 mg PO TID [facility] Last Admin: 12/12/17 13:03 Dose: 200 mg Ropinirole HCl (Requip) 3 mg PO HS [facility] Last Admin: 12/11/17 22:58 Dose: 3 mg Sodium Chloride (Ns Flush) 2 ml IV.FLUSH PRN PRN PRN Reason: FLUSH AFTER USING IV ACCESS Sodium Chloride (Ns Flush) 2 ml IV.FLUSH BID [facility] Last Admin: 12/12/17 10:20 Dose: Not Given Sodium Chloride (Ns Flush) 2 ml IV.FLUSH PRN PRN PRN Reason: FLUSH AFTER USING IV ACCESS Zolpidem Tartrate (Ambien) 5 mg PO HS PRN PRN Reason: INSOMNIA Last Admin: 12/11/17 22:58 Dose: 5 mg Allergies/Adverse Reactions: Allergies Allergy/AdvReac Type Severity Reaction Status Date / Time Sulfa (Sulfonamide Allergy Rash Verified 12/10/17 23:50 Antibiotics) Physical Exam Vital signs: Vital Signs 12/11/17 18:00 12/11/17 19:00 12/11/17 19:12 Temperature Pulse Rate 71 76 Respiratory Rate 18 Blood Pressure Pulse Oximetry 12/11/17 20:00 12/11/17 20:55 12/11/17 21:00 Temperature 98.2 F Pulse Rate 78 70 Respiratory Rate 16 Blood Pressure 126/83 Pulse Oximetry 98 98 12/11/17 21:38 12/11/17 22:00 12/11/17 23:00 Temperature Pulse Rate 80 80 Respiratory Rate 16 Blood Pressure Pulse Oximetry 12/12/17 00:00 12/12/17 01:00 12/12/17 02:00 Temperature 98.3 F Pulse Rate 84 80 80 Respiratory Rate 18 Blood Pressure 140/71 Pulse Oximetry 98 12/12/17 03:00 12/12/17 04:00 12/12/17 05:00 Temperature 98.1 F Pulse Rate 80 86 80 Respiratory Rate 18 Blood Pressure 168/91 H Pulse Oximetry 98 12/12/17 06:00 12/12/17 08:00 12/12/17 09:20 Temperature 97.8 F Pulse Rate 82 83 Respiratory Rate 18 18 Blood Pressure 171/85 H Pulse Oximetry 98 12/12/17 12:00 Temperature 97.9 F Pulse Rate 89 Respiratory Rate 18 Blood Pressure 164/90 H Pulse Oximetry 95 Intake & Output 12/11/17 12/12/17 12/12/17 18:59 06:59 18:59 Intake Total 720 / 720 1840 / 1840 1000 / 1000 Output Total 600 / 600 800 / 800 Balance 120 / 120 1040 / 1040 1000 / 1000 Weight 165.4 kg Intake: IV 1000 / 1000 1000 / 1000 NS Inj 1,000 ML @ 70 mls/hr IV. 1000 / 1000 1000 / 1000 CONT .[id number] [facility] Rx#:[id number] Oral 720 / 720 840 / 840 Output: Urine 600 / 600 800 / 800 Other: # Voids 1 Date of Last Bowel Movement 12/11/17 12/11/17 # Bowel Movements 2 2 - Routine Neurological Exam alert, speech normal CN intact MOTOR---5/5 BUE and BLE Objective Laboratory Results - last 24 hr 12/11/17 12/11/17 12/12/17 14:00 21:36 05:08 POC Glucose 126 H Triglycerides 206 H 245 H Cholesterol 195 183 LDL Cholesterol, Calc 108 H 92 HDL Cholesterol 45.6 41.8 Cholesterol/HDL Ratio 4.27 4.37 12/12/17 12/12/17 12/12/17 08:00 11:54 16:54 POC Glucose 168 H 139 H 137 H Triglycerides Cholesterol LDL Cholesterol, Calc HDL Cholesterol Cholesterol/HDL Ratio Review/Management - Review/Management Plan: TIA---stable on plavix history of possible venous sinus thrombosis dx in hospital in [place] as reason for prior xarelto therapy Recommend--MR venogram of brain. If normal, continue plavix. If shows signs of venous sinus thrombosis, resume xarelto. WIll also send for records from [facility]. Consider cardiology evaluation for snf loop recorder to r/o afib.
--- NOTE | 2017-12-12 18:05 | ECHRPT ---
Indication: CVA/TIA CONCLUSIONS Technically difficult study. The left ventricular systolic function is normal with an estimated ejection fraction in the range of 60-65%. Mild concentric left ventricular hypertrophy. Trace mitral valve regurgitation. BP: / HR: Rhythm: Sinus Technical Quality:Technically difficult study FINDINGS LEFT VENTRICLE The left ventricular systolic function is normal with an estimated ejection fraction in the range of 60-65%. Normal left ventricular size. Mild concentric left ventricular hypertrophy. RIGHT VENTRICLE Grossly normal LEFT ATRIUM The left atrial size is normal. RIGHT ATRIUM The right atrium is not well visualized. ATRIAL SEPTUM Normal atrial septal thickness without atrial level shunting by limited color doppler interrogation. AORTA The aortic root and proximal ascending aorta are not well visualized. MITRAL VALVE Grossly normal mitral valve. Trace mitral valve regurgitation. AORTIC VALVE Grossly normal aortic valve. No aortic valve stenosis or regurgitation. TRICUSPID VALVE Grossly normal tricuspid valve. No tricuspid valve stenosis or regurgitation. PULMONARY VALVE The pulmonary valve is not well visualized. VESSELS The inferior vena cava is normal in size. PERICARDIUM No pericardial effusion. Hammad Perez DO (Electronically Signed) Final Date:12 December 2017 18:04
[2017-12-12] MEDS ORDERED: Atropine Inj 1 MG/10 ML Syringe ONE (18:19)
[2017-12-12] MEDS ORDERED: Gadobutrol PF 10 MMOL/10 ML Vial (for RAD) IV.SIG ONE (18:39)
--- NOTE | 2017-12-12 19:22 | MR ---
EXAM DATE: 12/12/2017 7:11 PM EDT AGE/SEX: 57 years / Female INDICATIONS: . Venous Sinus Thrombosis CLINICAL DATA: This is the patient's subsequent encounter. Patient reports that signs and symptoms h ave been present for 2 days and indicates a pain score of 0/10. MEDICAL/SURGICAL HISTORY: Hypertension. Cervical CA, DM II section. Right TKR, Should er replacement, Radical Hysterectomy, Breast Reduction COMPARISON: [facility], MRA HEAD W/O CONTRAST, 12/11/2017. . TECHNIQUE: MR cerebral venography is performed without and with 10 ml Gadavist (gadobutrol) contrast (single exam dose). Source images, 3D volume MIP, and sliding thin slab MIP reconstructions were re viewed. FINDINGS: There is excellent visualization of the major intracranial arteries out to the second-order branch ve ssels. There is no evidence for aneurysm, vessel truncation or stenosis, and no evidence for vascula r malformation. CONCLUSION: MRV within normal limits. Electronically signed by: Waqar Rodriguez MD 12/12/2017 7:20 PM EDT
[2017-12-12] MEDS: Zolpidem Tartrate 5 MG Tablet PO PRN (22:49)
[2017-12-13] MEDS: Heparin - SQ 10,000 UNITS/ML Vial SQ SCH ×3 (03:20→14:53)
[2017-12-13] MEDS: Insulin NovoLOG Aspart Correctional Sugar Inj SQ SCH ×3 (03:21→12:40)
[2017-12-13] MEDS: Sod Chloride 0.9% Inj 1,000 ML IV.CONT SCH (06:10)
[2017-12-13] MEDS: Lisinopril 20 MG Tablet PO SCH (09:20)
[2017-12-13] MEDS: Ketorolac Inj 30 MG/ML (IVP) Vial IV.PUSH PRN (09:31)
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
[2017-12-13] MEDS: Acetaminophen 325 MG Tablet PO PRN (12:35)
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
[2017-12-13] MEDS: Insulin Detemir Inj 1,000 UNIT/10 ML Vial SQ SCH (12:39)
== END 2017-12-13 18:05 | disposition home or self-care (01) ==
LOC: EDBD → NEPC 23:45 → NEDA 12-11 02:39 → HCIS 12-11 14:34
PROVIDERS: ADMIT Internal Medicine; ATTEND Internal Medicine